=== PATIENT | female | born 1970 ===

== ENCOUNTER → 2018-01-13 | Outpatient (CLI) | payer BC ==
[~2018-01-13] MED LIST: ASPI81CH PO; CALC1.25T PO; CIPR500 PO; DIAZ10 PO; DULO60 PO; ERGO400 PO; ERGO50000 PO; ESTMET PO; FEXO60 PO; FLUC150A PO; HYDACE5325 PO; MORP15ER PO; MULVITA PO; NEBI5 PO; ONDA4 PO; OXYC15ER PO; PANT40 PO; PHENA100 PO; POLY17UD PO; PREG100 PO; PREN-16 PO; RABE20 PO; VALA500 PO
== END ==
LOC: LAB 18:20
DX: N39.0 Urinary tract infection, site not specified (principal)
CPT/HCPCS: 87086

== ENCOUNTER → 2018-01-17 | Outpatient (CLI) | payer BC | LOC: LAB 12:42 → LAB SHORT 12:42 | DX: N39.0 Urinary tract infection, site not specified (principal) | CPT/HCPCS: 87086 ==

== ENCOUNTER 2019-07-16 11:29 | Emergency (ER) | payer BC ==
[~2019-07-16] VITALS: Ht 162.6 cm; Wt 93.0 kg
[2019-07-16] MEDS ORDERED: Protonix40 MG PO (12:07)
[2019-07-16] MEDS ORDERED: PRINIVIL10 MG PO (12:07)
[2019-07-16] MEDS ORDERED: CYCL10 PO (12:07)
[2019-07-16] MEDS ORDERED: Citalopram HBr20 MG PO (12:07)
[2019-07-16] MEDS ORDERED: GABAPENTIN CAP 300 (12:08)
[2019-07-16 12:24] LABS: BASOPHILS ABSOLUTE AUTO 0.03 K/mm3 (0.00-0.23); BASOPHILS PERCENT AUTO 0 % (0-2); EOSINOPHILS ABSOLUTE AUTO 0.04 K/mm3 (0.00-0.68); EOSINOPHILS PERCENT AUTO 1 % (0-6); Hematocrit 44.8 % (33.0-51.0); Hemoglobin 15.3 g/dL (11.5-16.0); IMMATURE GRAN ABSOLUTE AUTO 0.07 K/mm3 (0.00-0.10); IMMATURE GRAN PERCENT AUTO 1 % (0-1); LYMPHOCYTES ABSOLUTE AUTO 1.14 K/mm3 (0.84-5.20); LYMPHOCYTES PERCENT AUTO 14 % (21-46); MONOCYTES ABSOLUTE AUTO 0.45 K/mm3 (0.16-1.47); MONOCYTES PERCENT AUTO 6 % (4-13); Mean Corpuscular HGB 30.6 pg (26.0-34.0); Mean Corpuscular HGB Conc 34.2 g/dL (31.5-36.5); Mean Corpuscular Volume 90 fL (80-100); Mean Platelet Volume 10.9 fL (9.1-12.4); NEUTROPHILS ABSOLUTE AUTO 6.42 K/mm3 (1.96-9.15); NEUTROPHILS PERCENT AUTO 79 % (41-73); Platelet Count 283 K/mm3 (150-400); RDW Standard Deviation 39.1 fL (35.1-46.3); White Blood Cell Count 8.15 K/mm3 (4.00-11.30)
[2019-07-16 13:31] LABS: Alanine Aminotransfer (ALT/SGP 32 U/L (12-78); Albumin/Globulin Ratio 0.8 (0.8-1.8); Alk Phos 108 U/L (50-136); Anion Gap 8 mmol/L (6-16); Aspartate Aminotrans (AST/SGOT 20 U/L (12-37); Bilirubin, Total 0.4 mg/dL (0.1-1.0); Blood Urea Nitrogen 15 mg/dL (8-24); CO2, Blood 26 mmol/L (21-32); Calcium, Blood 9.6 mg/dL (8.5-10.1); Chloride, Blood 110 mmol/L (98-108); Creatinine, Blood 0.79 mg/dL (0.40-1.00); Globulin, Blood 4.9 g/dL (2.2-4.0); Glomerular Filtration Rate >60 (60-); Glucose, Blood 126 mg/dL (70-99); Sodium, Blood 144 mmol/L (136-145); Total Protein, Blood 8.9 g/dL (6.4-8.2)
[2019-07-16 14:31] LABS: Source, Urine Clean Catch
[2019-07-16 14:33] LABS: Magnesium, Blood 2.3 mg/dL (1.6-2.4); Troponin I <0.015 ng/mL (0.000-0.040)
[2019-07-16 14:34] LABS: Thyroid Stimulating Hormone 0.304 uIU/mL (0.360-4.800)
[2019-07-16 14:39] LABS: Appearance, Urine Clear (Clear); Bilirubin, Urine Neg (Neg); Blood, Urine Neg (Neg); Color, Urine Yellow (P-Yellow); Glucose Qualitative, Urine Neg (Neg); Ketones, Urine Neg (Neg); Leukocyte Esterase, Urine 1+ (Neg); Nitrite, Urine Neg (Neg); Protein, Urine Neg (Neg); Urobilinogen, Urine NORM (Normal)
[2019-07-16 14:52] LABS: Bacteria Few /hpf; Red Blood Cells, Urine 0-2 /hpf (0-2); Squamous Epithelial Cells Few /hpf (Few); White Blood Cells, Urine 0-2 /hpf (0-5)
[2019-07-16] MEDS ORDERED: Esgic Tablet1 EACH PO (15:24)
== END 2019-07-16 15:32 | disposition home or self-care (01) ==
LOC: ER 11:29
PROVIDERS: Emergency Medicine; Physician Assistant
DX: R00.2 Palpitations (principal); R51 Headache; Z88.1 Allergy status to other antibiotic agents; Z88.2 Allergy status to sulfonamides
CPT/HCPCS: 36415; 70450; 80053; 81001; 83735; 84443; 84484; 85025; 87086; 93005; 93010; 96360; 99285-25; J7120

== ENCOUNTER 2022-04-10 09:00 | Day surgery (SDC) | payer BC ==
[~2022-04-10] VITALS: Ht 162.6 cm; Wt 92.3 kg
[~2022-04-10 09:00] MED LIST changes: +CYCL10 PO; +Citalopram HBr20 MG PO; +Esgic Tablet1 EACH PO; +GABA300 PO; +GABAPENTIN CAP 300 PO; +HYDSUL200 PO; +NABU750 PO; +PRINIVIL10 MG PO; +Prinivil10 MG PO; +Protonix40 MG PO; +SUMA25 PO
[2022-04-10] MEDS ORDERED: SENNA LAXATIVE8.6 MG PO (09:33)
[2022-04-10] MEDS ORDERED: MORP30 IT (09:40)
--- NOTE | 2022-04-10 11:18 | NUR ---
04/10/22 1118 Rashaad Clancy History, Chart, Medications and Allergies reviewed before start of procedure. Patient confirms NPO status and agrees with scheduled surgery. 3-LEAD EKG REVIEWED WITH PHYSICIAN PRIOR TO START OF PROCEDURE. MONITOR INTACT WITH CONTINUOUS PULSE OXIMETRY AND INTERMITTENT BP. PATIENT DETERMINED TO BE ASA APPROPRIATE FOR PROPOFOL SEDATION PRIOR TO START OF PROCEDURE BY DR. MORRIS.
--- NOTE | 2022-04-10 12:03 | NUR ---
PT SITTING UP, ICE CHIP PROVIDED
--- NOTE | 2022-04-10 12:34 | NUR ---
Discharge instructions reviewed with patient. Patient verbalizes understanding. Copy given to patient to take home. Discharged via wheelchair to private car for ride home.
== END 2022-04-10 12:36 | disposition home or self-care (01) ==
LOC: ORSCMMR 09:00 → ORD 10:00 → ORSCMMR 12:36
PROVIDERS: Student in an Organized Health Care Education/Training Program
PROC: 0DBH8ZX Excision of Cecum, Via Natural or Artificial Opening Endoscopic, Diagnostic (ICD-10-PCS; principal; 2022-04-10 10:00)
PROC: 0DB58ZX Excision of Esophagus, Via Natural or Artificial Opening Endoscopic, Diagnostic (ICD-10-PCS; principal; 2022-04-10 10:00)
PROC: 0DB78ZX Excision of Stomach, Pylorus, Via Natural or Artificial Opening Endoscopic, Diagnostic (ICD-10-PCS; principal; 2022-04-10 10:00)
DX: Z12.11 Encounter for screening for malignant neoplasm of colon (principal); K21.9 Gastro-esophageal reflux disease without esophagitis; K31.7 Polyp of stomach and duodenum; D12.0 Benign neoplasm of cecum; K63.89 Other specified diseases of intestine; K64.4 Residual hemorrhoidal skin tags; I10 Essential (primary) hypertension; M32.9 Systemic lupus erythematosus, unspecified; M06.9 Rheumatoid arthritis, unspecified; Z79.899 Other long term (current) drug therapy
CPT/HCPCS: 88305; J2405; J2704

== ENCOUNTER → 2023-07-30 | Outpatient (CLI) | payer BC ==
[~2023-07-30] MED LIST changes: +MORP30 IT; +SENNA LAXATIVE8.6 MG PO
== END | disposition home or self-care (01) ==
LOC: LAB SHORT 08:06 → LAB 08:06
DX: R30.0 Dysuria (principal)
CPT/HCPCS: 87086

== ENCOUNTER → 2023-08-06 | Outpatient (CLI) | payer BC ==
[2023-08-06 14:24] LABS: BASOPHILS ABSOLUTE AUTO 0.03 K/mm3 (0.00-0.23); BASOPHILS PERCENT AUTO 1 % (0-2); EOSINOPHILS ABSOLUTE AUTO 0.34 K/mm3 (0.00-0.68); EOSINOPHILS PERCENT AUTO 7 % (0-6); Hematocrit 40.9 % (33.0-51.0); Hemoglobin 14.1 g/dL (11.5-16.0); IMMATURE GRAN ABSOLUTE AUTO 0.01 K/mm3 (0.00-0.10); IMMATURE GRAN PERCENT AUTO 0 % (0-1); LYMPHOCYTES ABSOLUTE AUTO 0.49 K/mm3 (0.84-5.20); LYMPHOCYTES PERCENT AUTO 10 % (21-46); MONOCYTES ABSOLUTE AUTO 0.25 K/mm3 (0.16-1.47); MONOCYTES PERCENT AUTO 5 % (4-13); Mean Corpuscular HGB 31.7 pg (26.0-34.0); Mean Corpuscular HGB Conc 34.5 g/dL (31.5-36.5); Mean Corpuscular Volume 92 fL (80-100); Mean Platelet Volume 10.7 fL (9.1-12.4); NEUTROPHILS PERCENT AUTO 77 % (41-73); Platelet Count 234 K/mm3 (150-400); RDW Standard Deviation 40.2 fL (35.1-46.3); Red Blood Cell Count 4.45 M/mm3 (3.80-5.20); White Blood Cell Count 4.82 K/mm3 (4.00-11.30)
[2023-08-06 14:38] LABS: C-REACTIVE PROTEIN, EXT RANGE 2.1 mg/dL (0.000-0.300)
[2023-08-06 14:40] LABS: Albumin, Blood 3.5 g/dL (3.4-5.0); Albumin/Globulin Ratio 0.9 (0.8-1.8); Bilirubin, Total 0.4 mg/dL (0.1-1.0); Bun/Creatinine Ratio 17.6 (12.0-20.0); Calcium, Blood 9.2 mg/dL (8.5-10.1); Creatinine, Blood 1.02 mg/dL (0.40-1.00); Globulin, Blood 3.7 g/dL (2.2-4.0); Total Protein, Blood 7.2 g/dL (6.4-8.2)
== END | disposition home or self-care (01) ==
LOC: LAB SHORT 13:30 → LAB 13:30
PROVIDERS: Physician Assistant
DX: R53.83 Other fatigue (principal); R51.9 Headache, unspecified
CPT/HCPCS: 80053; 85025; 85651; 86140

== ENCOUNTER → 2023-10-07 | Outpatient (CLI) | payer BC ==
[2023-10-07 11:54] LABS: Microalbumin, Urine Quant. <5.000 mg/L (0.000-20.000); Protein, Urine Quantitative 11.6 mg/dL (0.0-11.9)
== END ==
LOC: LAB SHORT 09:26 → LAB 09:26
PROVIDERS: Internal Medicine Nephrology
DX: N18.30 Chronic kidney disease, stage 3 unspecified (principal); D75.1 Secondary polycythemia; R69 Illness, unspecified; R94.5 Abnormal results of liver function studies; R94.6 Abnormal results of thyroid function studies; D51.8 Other vitamin B12 deficiency anemias; D52.8 Other folate deficiency anemias; D50.9 Iron deficiency anemia, unspecified; N25.81 Secondary hyperparathyroidism of renal origin; E55.9 Vitamin D deficiency, unspecified; E78.00 Pure hypercholesterolemia, unspecified; R76.9 Abnormal immunological finding in serum, unspecified
CPT/HCPCS: 81050; 82043; 82570; 84156

== ENCOUNTER → 2024-11-11 | Outpatient (CLI) | payer BC ==
[2024-11-11 15:41] LABS: Bacterial Vaginosis PCR Negative (NEGATIVE); Candida Group, PCR NOT DETECTED (NOT DETECT); Candida glabrata-krusei, PCR NOT DETECTED (NOT DETECT)
== END | disposition home or self-care (01) ==
LOC: LAB 11:35 → LAB SHORT 11:35
PROVIDERS: Advanced Practice Midwife
DX: B37.31 Acute candidiasis of vulva and vagina (principal)
CPT/HCPCS: 87481; 87661; 87801